=== PATIENT | male | born 2000 | race Hispanic/Latino ===

== ENCOUNTER 2022-05-19 19:16 | Emergency (ER) | payer OTHER, SELFPAY ==
[2022-05-19] MEDS ORDERED: Lidocaine Viscous Sol 2% 15 ml UD Cup ONE (20:38)
[2022-05-19] MEDS ORDERED: Mag-Al 1200 mg/1200 mg/30 ML UDCUP ONE (20:38)
[2022-05-19] MEDS ORDERED: Dicyclomine 20 MG TAB ONE (20:38)
[2022-05-19 21:10] LABS: #Basophils 0.1 thou/uL (0.0-0.2); #Eosinphils 0.2 thou/uL (0.0-0.7); #Lymphocytes 1.3 thou/uL (1.20-3.40); #Monocytes 1.1 thou/uL (0.11-0.59); #Neutrophils 10.6 thou/uL (1.40-6.50); %Basophils 0.6 % (0.0-1.0); %Eosinophils 1.4 % (0.0-10.0); %Lymphocytes 10.2 % (28.0-48.0); %Monocytes 7.9 % (0.0-4.0); %Neutrophils 79.9 % (31.0-61.0); Hemoglobin 16.3 g/dL (14.0-18.0); Mean Corpuscular HGB CONC 32.2 g/dL (32.0-36.0); Mean Corpuscular Hemoglobin 27.9 pg (25.0-35.0); Mean Corpuscular Volume 86.7 fl (78.0-98.0); Mean Platelet Volume 7.1 fL (7.4-10.4); Platelet Count 264 10x3/uL (130-400); RBC Distribution Width 12.2 % (11.5-14.5); Red Blood Cell (RBC) Count 5.85 mill/uL (4.00-5.20); White Blood Cell (WBC) Count 13.2 10x3/uL (4.8-10.8)
[2022-05-19 21:29] LABS: ALT (SGPT) 48 U/L (8-55); AST (SGOT) 25 U/L (5-34); Albumin 4.6 g/dL (3.5-5.0); Alkaline Phosphatase 121 U/L (50-130); Anion Gap 15 mmol/L (10-20); BUN (Urea Nitrogen) 9 mg/dL (8.9-20.6); Bilirubin, Total 0.3 mg/dL (0.2-1.2); Calc. Creatinine Clearance 0 mL/min (70-130); Calcium 9.5 mg/dL (7.8-10.44); Carbon Dioxide 22 mmol/L (22-29); Chloride 104 mmol/L (98-107); Estimated GFR 124; Globulin 3.6 g/dL (2.4-3.5); Glucose 99 mg/dL (70-105); Lipase 29 U/L (8-78); Potassium 4.2 mmol/L (3.5-5.1); Protein, Total 8.2 g/dL (6.0-8.3); Sodium 137 mmol/L (136-145)
== END 2022-05-19 22:10 | disposition home or self-care (01) ==
LOC: ERS 19:16
DX: K29.70 Gastritis, unspecified, without bleeding (principal); D72.829 Elevated white blood cell count, unspecified
CPT/HCPCS: 36415; 80053; 83690; 85025; 99284